=== PATIENT | male | born 1995 | race Caucasian/White ===

== ENCOUNTER 2020-02-18 18:00 | Emergency (ER) | payer SELFPAY ==
[~2020-02-18] VITALS: Ht 182.9 cm; Wt 127.0 kg
[2020-02-18 18:11] VITALS: BP 137/85
--- NOTE | 2020-02-18 18:19 | NUR ---
DR NUÑEZ AT BEDSIDE EVALUATING PT.
--- NOTE | 2020-02-18 18:20 | NUR ---
C/O INTERMITENT CHEST PAIN RADIATING TO LEFT ARM & VOMITING X YESTERDAY AFTER SMOKING WEED. LEFT ARM NUMBNESS AT THIS TIME.PT AOX4 , AFIBRILE , AMBULATORY WITH STEADY GAIT ,PINK PALPEBRAL CONJUNCTIVA , ANICTERIC SCLERA , MOTOR UE 5/5 , SENSORY 2/2 . MED HX: MARIJUANA USING
--- NOTE | 2020-02-18 18:27 | NUR ---
QUYNH HOOPER AT BEDSIDE DOIN EKG.
[2020-02-18 18:34] VITALS: BP 132/69
--- NOTE | 2020-02-18 18:35 | NUR ---
Patient discharged with v/s stable. Written and verbal after care instructions given and explained. Patient verbalized understanding. Ambulatory with steady gait. All questions addressed prior to discharge. Advised to follow up with PMD.
== END 2020-02-18 18:35 | disposition home or self-care (01) ==
LOC: MED 18:00
DX: F41.9 Anxiety disorder, unspecified (principal); R07.9 Chest pain, unspecified; F12.10 Cannabis abuse, uncomplicated
CPT/HCPCS: 93005; 99283

== ENCOUNTER 2020-02-27 20:51 | Emergency (ER) | payer SELFPAY ==
[~2020-02-27] VITALS: Ht 182.9 cm; Wt 131.5 kg
[2020-02-27 20:55] VITALS: BP 139/76
--- NOTE | 2020-02-27 21:07 | NUR ---
X-Ray at bedside.
--- NOTE | 2020-02-27 21:09 | NUR ---
24 Y/O MALE PRESENTED TO ED C/O INTERMITTENT CP & SOB X 2 WEEKS. PT STATES HE HAS A "PANIC ATTACK" 2 WEEKS AGO AFTER HE SMOKED WEED. PT STATES SINCE THAT INCIDENT HE HAS NOT SMOKED WEED BUT IS STILL HAVING INTERMITTENT CP THAT RADIATES INTERCHANGABLY TO RT ARM OR LT SHOULDER. PT STATES CURRENTLY HE IS NOT IN ANY PAIN BUT IS FEELING SLIGHT [place] . PT SECONDARY C/O AFTER HE EATS HE STARTS GETTING DIZZY AND LIGHTHEADED . PT STATES WHEN HE WAS 17 HE WAS TOLD HE MIGHT BE DM BUT PT HAS NOT FOLLOWED UP TO FIND OUT IF HE DOES HAVE DM. PT RR EVEN AND UNLABORED, S1S2 NOTED, <3 SEC CAP REFIL , ABD ROUND SOFT AND NON TENDER, ACTIVE BOWEL SOUNDS IN ALL QUADS. PT RESTING IN BED, LOCKED AND IN LOWEST POSITION, HOB ELEVATED , SIDE RAIL X2 FOR PT SAFETY. PMH: DENIES NKA
--- NOTE | 2020-02-27 21:22 | NUR ---
Dr. Bradley examining patient.
[2020-02-27] MEDS ORDERED: LORazepam 1 MG TAB PO ONE (21:40)
[2020-02-27 22:44] VITALS: BP 114/73
--- NOTE | 2020-02-27 22:44 | NUR ---
Patient discharged with v/s stable. Written and verbal after care instructions given and explained. Patient alert, oriented and verbalized understanding of instructions. Ambulatory with steady gait. All questions addressed prior to discharge. ID band removed. Patient advised to follow up with PMD. Rx of HYDROXYZINE HCL given. Patient educated on indication of medication including possible reaction and side effects. Opportunity to ask questions provided and answered.
== END 2020-02-27 22:44 | disposition home or self-care (01) ==
LOC: MED 20:51
DX: F41.0 Panic disorder [episodic paroxysmal anxiety] (principal); R07.9 Chest pain, unspecified; R06.02 Shortness of breath
CPT/HCPCS: 71045; 93005; 99283; Q0092